=== PATIENT | female | born 1945 | race Caucasian/White ===

== ENCOUNTER 2016-05-21 19:56 | Emergency (ER) | payer OTHER ==
[2016-05-21 20:16] VITALS: BP 127/88
[2016-05-21] MEDS ORDERED: Acetaminophen TAB* 325 MG PO ONE (20:31)
--- NOTE | 2016-05-21 20:54 | UC ---
Meryl Willis Erika, scribed for Bonnie Albert MD on 05/21/16 at 2024 . Head Injury HPI - HPI Summary HPI Summary: Patient is a 70-year-old female presenting to [facility] with a CC of right-sided facial swelling s/p mechanical fall. Pt reports that she slipped and fell onto her face STEAM HAND. She has swelling and a laceration to the area. Pt reports pain has been worsening since the accident. Pt denies dental pain and states her teeth feel aligned. Denies LOC. Pt also complains of right-sided rib pain. FHx arteritis. Pt does not take blood thinners. - History Of Current Complaint Chief Complaint: UCGeneralIllness Stated Complaint: LACERATION ON FACE,FELL Time Seen by Provider: 05/21/16 20:18 Hx Obtained From: Patient, Family/Luggage Liner - Onset/Duration: Sudden Onset, Lasting Hours, Still Present Severity Currently: Moderate Pain Intensity: 4 Pain Scale Used: 0-10 Numeric Character: Dull Aggravating Factor(s): Nothing Alleviating Factor(s): Other - ice Associated Signs And Symptoms: Positive: Other - swelling and laceration to the face. Negative: LOC (Time In Secs./Mins/Hrs) - Allergies/Home Medications Allergies/Adverse Reactions: Allergies Allergy/AdvReac Type Severity Reaction Status Date / Time Penicillins Allergy Unknown Verified 05/21/16 20:06 Reaction Details Home Medications: Home Medications Thyroid [[place] Thyroid] 1 tab PO DAILY 05/21/16 [History Confirmed 05/21/16] PMH/Surg Hx/FS Hx/Imm Hx Endocrine History Of: Denies: Diabetes Cancer History Of: Reports: Breast Cancer - Surgical History Surgical History: Yes Surgery Procedure, Year, and Place: LUMPECTOMY-LEFT SIDE - Family History Known Family History: Positive: Other - osteoporosis - Social History Lives: With Family Alcohol Use: Rare Substance Use Type: None Smoking Status (MU): Never Smoked Tobacco Review of Systems Skin: Other - painful facial swelling, laceration Eyes: Other - swelling right orbit Cardiovascular: Other - right rib pain Gastrointestinal: Negative Neurovascular: Negative Musculoskeletal: Arthralgia - right rib pain Neurological: Negative Psychological: Negative All Other Systems Reviewed And Are Negative: Yes Physical Exam Triage Information Reviewed: Yes Appearance: Well-Appearing, Well-Nourished, Pain Distress Vital Signs: Initial Vital Signs Temp 99.2 F 05/21/16 20:07 Pulse 87 05/21/16 20:07 Resp 18 05/21/16 20:07 BP 127/88 05/21/16 20:07 Pulse Ox 96 05/21/16 20:07 Vital Signs Reviewed: Yes Eyes: Positive: Conjunctiva Clear ENT Exam: Other - Periorbital hematoma to the right cheek with no step offs, no hyphema. EOMI PERRL Dental Exam: Normal - intact, aligned as ever Dental: Negative: Dental Fracture @ Neck: Positive: Supple, Nontender Respiratory: Positive: Lungs clear, Normal breath sounds, No respiratory distress, No accessory muscle use Cardiovascular: Positive: RRR, No Murmur, Pulses Normal, Brisk Capillary Refill Musculoskeletal: Positive: Strength Intact, ROM Intact, Other: - right 4th and 5th anterior rib tenderness with no crepitus and no bruising Neurological: Positive: Alert, Muscle Tone Normal Psychological Exam: Normal Skin Exam: Other - superficial laceration right upper eyebrow, swelling, ecchymosis right orbit Head Injury Course/Dx - Differential Dx/Diagnosis Differential Diagnosis/HQI/PQRI: Concussion Without LOC, Intracranial Bleed, Orbital Fracture, Skull Fracture, Zygomatic Fracture, Other - rib fracture Provider Diagnoses: 1. Mechanical fall. 2. Orbital hematoma. 3. Rib pain s/p mechanical fall - Physician Notification/Consults Discussed Patient Care With: [place]. Phipps ([facility] at 20:29 - pt will go by private car to the ED Instructed by Provider To: MD Will See In ED Discharge - Discharge Plan Condition: Stable Disposition: AGAINST MEDICAL ADVICE Referrals: Melissa Monae MD [Primary Care Provider] - The documentation as recorded by the Meryl bowles Erika accurately reflects the service I personally performed and the decisions made by , Bonnie Albert MD.
== END 2016-05-21 21:00 | disposition left against medical advice (07) ==
LOC: UCEAST 19:56
DX: S05.11XA Contusion of eyeball and orbital tissues, right eye, initial encounter (principal); S01.111A Laceration without foreign body of right eyelid and periocular area, initial encounter; W01.0XXA Fall on same level from slipping, tripping and stumbling without subsequent striking against object, initial encounter; Y93.9 Activity, unspecified; Y92.9 Unspecified place or not applicable; Z88.0 Allergy status to penicillin
CPT/HCPCS: 99212; A9270-GY; G0463

== ENCOUNTER 2016-05-21 21:08 | Emergency (ER) | payer OTHER ==
--- NOTE | 2016-05-21 22:28 | ED ---
Jordan Willis Michael, scribed for Mere Phipps MD on 05/21/16 at 2152 . Adult Trauma - HPI Summary HPI Summary: 70 y/o female was referred to ED from [facility] to the ED after a mechanical fall while she was running on an uneven sidewalk at 1900 this evening. The pt recalls hitting her head with her glasses on. She c/o right orbital pain with ecchymosis. Pt denies LOC. Denies neck and back pain. No blood HEENT. No vision changes. Pt was given APAP at [facility]. The pt also is positive for RUBI, back pain, right rib pain, and bilat knee pain. She denies LOC, dental pain, hematuria, nausea, epistaxis, and bleeding from the ears. Pt unslure of last Tdap. No anticoagulants - History of Current Complaint Chief Complaint: EDTraumaMultiple Stated Complaint: TRANSFER/FALL- Time Seen by Provider: 05/21/16 21:23 Hx Obtained From: Patient, EMS, Medical Records Mechanism of Injury: Blunt Trauma, Fall Loss of Consciousness: no loss of consciousness Onset/Duration: Started Hours Ago, Still Present Onset of Pain: Immediate Onset Severity: Moderate Current Severity: Moderate Pain Intensity: 7 Pain Scale Used: 0-10 Numeric Location: Head, Chest, Back, Abdomen/Pelvis, Extremities - RUE Associated Signs & Symptoms: Positive: Negative - denies LOC, dental pain, hematuria, nausea, epistaxis, and bleeding from the ears, Chest Pain, Abdominal Pain, Ecchymosis - right orbital, Other: - RUE pain. back pain. bilat knee pain. RUBI. - Allergy/Home Medications Allergies/Adverse Reactions: Allergies Allergy/AdvReac Type Severity Reaction Status Date / Time Penicillins Allergy Unknown Verified 05/21/16 20:06 Reaction Details PMH/Surg Hx/FS Hx/Imm Hx Previously Healthy: Yes Endocrine/Hematology History: Denies: Hx Anticoagulant Therapy, Hx Diabetes Musculoskeletal History: Reports: Hx Osteoporosis Denies: Hx Rheumatoid Arthritis - OA - Cancer History Cancer Type, Location and Year: BREAST-2009 - Surgical History Surgery Procedure, Year, and Place: LUMPECTOMY-LEFT SIDE Infectious Disease History: No Infectious Disease History: Denies: Traveled Outside the [place] in Last 30 Days - Family History Known Family History: Positive: Other - osteoporosis - Social History Occupation: Employed Full-time Lives: With Family Alcohol Use: Rare Substance Use Type: Reports: None Smoking Status (MU): Never Smoked Tobacco Review of Systems Negative: Fever Positive: Other - right orbital pain w/ ecchymosis Negative: Epistaxis, Dental Pain Positive: Chest Pain Positive: Abdominal Pain. Negative: Nausea Positive: Other - back pain. bilat knee pain. RUE pain. Positive: Bruising Positive: Headache. Negative: Syncope Psychological: Normal All Other Systems Reviewed And Are Negative: Yes Physical Exam Triage Information Reviewed: Yes Vital Signs On Initial Exam: Initial Vitals Temp Pulse Resp BP Pulse Ox 98.8 F 88 16 142/83 100 05/21/16 21:10 05/21/16 21:10 05/21/16 21:10 05/21/16 21:10 05/21/16 21:10 Vital Signs Reviewed: Yes Appearance: Positive: Well-Appearing, No Pain Distress Skin: Positive: Warm, Skin Color Reflects Adequate Perfusion, Dry, Other - right orbital ring, lateral aspect with ecchymosis. b/l knees, small- non- suturable abrasions Head/Face: Positive: Normal Head/Face Inspection Eyes: Positive: Normal, EOMI, RACQUEL, Conjunctiva Clear, Other: - no hymphema, injection, subconjunctival hematoma No crepitus of orbit + Tenderness right lateral orbit with direct palp. Negative: Conjunctiva Inflammed, Discharge ENT: Positive: Normal ENT inspection, Pharynx normal, TMs normal. Negative: Nasal congestion, Nasal drainage Neck: Positive: Supple, Nontender, No Lymphadenopathy Respiratory/Lung Sounds: Positive: Clear to Auscultation, Breath Sounds Present , Decreased Breath Sounds, Other - mild discomfort right mid, distal ribs. no crepitus. no ecchymosis. + BS throughout No retractions. Negative: Wheezes Cardiovascular: Positive: Normal, RRR. Negative: Murmur Abdomen Description: Positive: Nontender, No Organomegaly, Soft Bowel Sounds: Positive: Present Musculoskeletal: Positive: Normal, Strength/ROM Intact, Other - No spinous process pain c/t/l/s Full AROM ext x 4 Neurological: Positive: Normal, Sensory/Motor Intact, Alert, Oriented to Person Place, Time. Negative: Slurred Speech, Ataxic Gait Psychiatric: Positive: Normal AVPU Assessment: Alert - Mary Jane Coma Scale Best Eye Response: 4 - Spontaneous Best Motor Response: 6 - Obeys Commands Best Verbal Response: 5 - Oriented Diagnostics - Vital Signs Vital Signs Temp Pulse Resp BP Pulse Ox 05/21/16 21:10 98.8 F 88 16 142/83 100 - Laboratory Lab Statement: Any lab studies that have been ordered have been reviewed, and results considered in the medical decision making process. - CT Brain CT CT Interpretation: No Acute Changes CT Interpretation Completed By: Radiologist Orbital CT CT Interpretation: Positive (See Comments) - RIGHT MAXILLA SOFT TISSUE SWELLING WITH SMALL HEMATOMA. NO FACIAL BONE FRACTURE. CT Interpretation Completed By: Radiologist Re-Evaluation - Re-Evaluation First Eval Comment: Reviewed imaging with pt. Pt declined tdap - will check with PCP. motrin/apap. rest. stretch. deep, slow breaths. f/u with pcp. return prn Adult Trauma Course/Dx - Course Assessment/Plan: Pt presents s/p mechanical fall. Pt with ecchymosis right lateral orbit and abraisons to knee. Pt with discomfort right lateral, distal ribs - no crepitus. Pt very concerned about imaging and refusing cxr, rib films , knee films. Pt agrees to head and orbit CT. Pt aware may miss rib fx or other injuries. ice. pt give APAP. Pt will consider tdap. reassess - Diagnoses Differential Diagnosis/HQI/PQRI: Positive: Abrasion(s), Contusion(s), Fracture Provider Diagnoses: Facial contusion, Abrasion Discharge - Discharge Plan Condition: Stable Disposition: HOME Patient Education Materials: Abrasion (ED), Facial Contusion (ED) Referrals: Melissa Monae MD [Primary Care Provider] - Additional Instructions: - stay well hydrated Drink plenty of non-alcoholic, non-caffinated beverages - anticipate increased pain over the next 1-2 days. this is normal. Slow, gentle stretching exercises are important - Okay to alternate ibuprofen (advil, motrin) and tylenol every 3 hours for pain. Take with food. Do NOT take for more than 4-5 days. - Follow-up with your doctor regarding your tetanus - apply ice, 20 minutes at a time, to the areas of injury - Contact your doctor or return with questions or concerns The documentation as recorded by the Jordan bowles Michael accurately reflects the service I personally performed and the decisions made by Moise barton Laura, MD.
--- NOTE | 2016-05-21 22:52 | RAD ---
INDICATION: Right facial injury COMPARISON: None TECHNIQUE: Noncontrast axial source images were acquired from the skull base to the vertex. FINDINGS: Ventricles/sulci: The ventricles and cisterns are normal in size and configuration for age. Brain parenchyma: There is no significant focal parenchymal finding, evidence of intracranial mass, or intracranial mass effect. There is probably a small left basal ganglia calcification There is calcification of pineal gland. Intracranial hemorrhage:None. Extra-axial spaces: There are no abnormal extra axial fluid collections or evidence of extra-axial mass. Calvarium: There is no calvarial fracture or other calvarial abnormality. Scalp: There is no evidence of scalp or extracalvarial soft tissue abnormality. Paranasal sinuses/mastoid: The paranasal sinuses and mastoid air cells are clear. Other: None. IMPRESSION: NO ACUTE INTRACRANIAL FINDINGS.
--- NOTE | 2016-05-21 22:54 | RAD ---
INDICATION: Right facial injury after fall COMPARISON: None TECHNIQUE: Axial source images were acquired through the orbits. Coronal and sagittal reconstructed images were acquired. FINDINGS: Bones: There is no acute facial bone fracture. Orbits: The globes and intraconal structures appear intact. The optic nerves are symmetric. Extraocular muscles appear normal. There is no intraconal inflammatory change or retrobulbar mass.. Paranasal sinuses: The paranasal sinuses are clear. Brain: There are no acute abnormalities of the visualized brain parenchyma. Soft tissues: There is soft tissue swelling with septation edema over the right maxilla and there is a small rounded radiodensity consistent with a small hematoma measuring 1.4 cm Other: None The visualized soft tissue elements about the neck appear normal. IMPRESSION: RIGHT MAXILLA SOFT TISSUE SWELLING WITH SMALL HEMATOMA. NO FACIAL BONE FRACTURE.
[2016-05-21 23:27] VITALS: BP 154/76
== END 2016-05-21 23:27 | disposition home or self-care (01) ==
LOC: ED 21:08
DX: S00.83XA Contusion of other part of head, initial encounter (principal); S00.81XA Abrasion of other part of head, initial encounter; R07.9 Chest pain, unspecified; R10.9 Unspecified abdominal pain; M54.9 Dorsalgia, unspecified; R51 Headache; W19.XXXA Unspecified fall, initial encounter; Y93.9 Activity, unspecified; Y92.9 Unspecified place or not applicable; Y99.9 Unspecified external cause status
CPT/HCPCS: 70450; 70480; 99212; 99282; A9270-GY; G0463

== ENCOUNTER 2016-12-28 09:07 | Day surgery (SDC) | payer OTHER ==
[~2016-12-28 09:07] MED LIST: Buffered Lidocaine 0.9% SYRIN* 5 ML/SYR SYRINGE INTRADERM ONE; Dexamethasone IV* 4 MG/ML 1 ML (4 MG) IV SLOW PU ONE; Famotidine IV* 10 MG/ML 2 ML (20 mg) IV ONE
[2016-12-28] MEDS ORDERED: Dexamethasone IV* 4 MG/ML 1 ML (4 MG) ONE (09:28)
[2016-12-28] MEDS ORDERED: Buffered Lidocaine 0.9% SYRIN* 5 ML/SYR SYRINGE ONE (09:28)
[2016-12-28] MEDS ORDERED: Famotidine IV* 10 MG/ML 2 ML (20 mg) ONE (09:28)
[2016-12-28] MEDS ORDERED: Midazolam* 1 MG/ML 5 ML VIAL (5 MG) ONE (09:29)
[2016-12-28] MEDS ORDERED: Chloroprocaine 2%* 20 ML VIAL ONE (10:26)
[2016-12-28] MEDS ORDERED: DiMENhydriNATE IV* 50 MG/ML VIAL IV PUSH PRN (10:31)
[2016-12-28] MEDS ORDERED: fentaNYL* 50 MCG/ML 2 ML VIAL (100 MCG VIAL) IV PRN (10:31)
[2016-12-28] MEDS ORDERED: oxyCODONE/Acetamin 5/325 MG* TAB PO PRN (10:31)
[2016-12-28] MEDS ORDERED: Ondansetron INJ* 2 MG/ML VIAL IV PRN (10:31)
[2016-12-28] MEDS ORDERED: Ibuprofen TAB* 400 MG ONE ×2 (11:43→11:47)
[2016-12-28 12:42] VITALS: BP 126/68
--- NOTE | 2017-01-04 02:45 | OP ---
DATE OF SURGERY: 12/28/16 [facility] DATE OF : 45 SURGEON: Scott Avalos MD. ANESTHESIOLOGIST: Cr Burton MD ANESTHESIA: Spinal. PRE-OP DIAGNOSIS: Postmenopausal bleeding. POST-OP DIAGNOSIS: Postmenopausal bleeding, pending pathology. OPERATIVE PROCEDURE: Hysteroscopy and D and C. ESTIMATED BLOOD LOSS: None. SPECIMENS SENT TO PATHOLOGY: Endometrial curettings. IV FLUIDS: She received 1300 cc of IV crystalloid fluid. URINE OUTPUT: 400 cc of clear urine. FINDINGS: The uterus sounded to 6 cm and was in anteverted position. Hysteroscopically, she had a denuded atrophic endometrium and there were no obvious lesions noted. DESCRIPTION OF PROCEDURE: The patient was taken to the operating room where she was identified. She was placed on the operating table where a spinal anesthetic was obtained without difficulty. She was then placed in the dorsal lithotomy position, prepped and draped in the normal sterile fashion. Attention was then brought on to the patient's perineum where the bladder was catheterized and clear of urine. A weighted speculum was then inserted into the patient's vagina. The cervix was identified, grasped with a single-tooth tenaculum and the uterus was then sounded to 6 cm and noted to be in an anteverted position. The cervical os was then further dilated with Hegar dilators and through the cervix, I was able to introduce a 30-degree, 10 mm hysteroscope. The survey of the patient's endometrial cavity hysteroscopically revealed findings as noted above. After the hysteroscopy, I proceeded to perform a sharp curettage of the patient's uterine cavity. The endometrial curettings, which were scant, were sent to pathology. A second look with the hysteroscope revealed complete denudation of the endometrial cavity. At this point, all the instruments were removed from the patient's vagina. Sponge, lap, needle counts were correct x2. She was then transferred to recovery room area in stable condition. [id number]/[id number] #: [id number] [facility] HOSPITALManuelito
== END 2016-12-28 12:50 | disposition home or self-care (01) ==
LOC: OR 09:07
PROVIDERS: ATTEND Obstetrics & Gynecology
DX: N95.0 Postmenopausal bleeding (principal); E03.9 Hypothyroidism, unspecified; M19.90 Unspecified osteoarthritis, unspecified site; Z85.3 Personal history of malignant neoplasm of breast; G43.909 Migraine, unspecified, not intractable, without status migrainosus
CPT/HCPCS: 62323; 88305; A9270-GY; J1100; J2250; J2400

== ENCOUNTER 2017-09-20 18:29 | Emergency (ER) | payer OTHER ==
[2017-09-20 18:53] VITALS: BP 119/67
[2017-09-20] MEDS ORDERED: HYDROcodone/ACETAMIN 5-325 MG* 1 TAB PO ONE (19:25)
--- NOTE | 2017-09-20 19:37 | RAD ---
INDICATION: Left shoulder pain COMPARISON: None TECHNIQUE: Routine frontal, Y and axial views were obtained. FINDINGS: There is a fracture of the head and surgical neck of the humerus. The fractures essentially nondisplaced. No other fractures are evident. There is no dislocation. There clips in left axillary region. IMPRESSION: FRACTURES OF THE HUMERAL HEAD AND NECK.
--- NOTE | 2017-09-20 19:57 | UC ---
Katarina Willis Julia, scribed for Tyrese Montoya MD on 09/20/17 at 1920 . Upper Extremity HPI - HPI Summary HPI Summary: This patient is a 72 year old F [place] [facility] [place] a chief complaint of left shoulder pain after tripping over a box earlier today. Patient believes she may have broken her left arm or shoulder. Pain is a 6/10 to a 7/10 in severity. Patient states she is unable to move arm secondary to pain. She c/o left hand numbness. - History of Current Complaint Chief Complaint: UCUpperExtremity Stated Complaint: SHOULDER INJURY Time Seen by Provider: 09/20/17 18:58 Hx Obtained From: Patient Hx Last Menstrual Period: post Onset/Duration: Sudden Onset, Lasting Hours Pain Intensity: 7 Pain Scale Used: 0-10 Numeric Location Of Pain: Is Discrete @ - left shoulder/arm Aggravating Factor(s): Movement Associated Signs And Symptoms: Positive: Numbness/Tingling - left hand - Allergies/Home Medications Allergies/Adverse Reactions: Allergies Allergy/AdvReac Type Severity Reaction Status Date / Time Penicillins Allergy from Verified 09/20/17 18:54 allergy testing PMH/Surg Hx/FS Hx/Imm Hx Previously Healthy: Yes Endocrine History: Thyroid Disease - well controlled Other History Of: Negative For: Anticoagulant Therapy - Surgical History Surgical History: Yes Surgery Procedure, Year, and Place: LUMPECTOMY-LEFT SIDE 2008 [facility] [place] - Family History Known Family History: Positive: Other - osteoporosis - Social History Alcohol Use: Rare Substance Use Type: None Smoking Status (MU): Never Smoked Tobacco Review of Systems Constitutional: Negative Musculoskeletal: Myalgia - L shoulder/arm pain Neurological: Numbness - Left hand All Other Systems Reviewed And Are Negative: Yes Physical Exam - Summary Physical Exam Summary: VITAL SIGNS: Reviewed. GENERAL: Patient is a well-developed and nourished female who is lying in the stretcher. Patient is not in any acute respiratory distress. HEAD AND FACE: Normocephalic EYES: PERRLA, EOMI x 2. EARS: Hearing grossly intact. MOUTH: Oropharynx within normal limits. NECK: Supple, trachea is midline, no adenopathy, no JVD, no carotid bruit. CHEST: Symmetric, no tenderness at palpation LUNGS: Clear to auscultation bilaterally. No wheezing or crackles. CVS: Regular rate and rhythm, S1 and S2 present, no murmurs or gallops appreciated. ABDOMEN: Soft, non-tender. Bowel sounds are normal. No abdominal abnormal pulsations. EXTREMITIES: no edema, no cyanosis or clubbing. Decreased ROM in L shoulder. Left extremity is neurovascularly intact NEURO: Alert and oriented x 3. No acute neurological deficits. Speech is normal and follows commands. SKIN: Dry and warm Triage Information Reviewed: Yes Vital Signs: Initial Vital Signs Temp 98 F 09/20/17 18:43 Pulse 73 09/20/17 18:43 Resp 15 09/20/17 18:43 BP 119/67 09/20/17 18:43 Pulse Ox 99 09/20/17 18:43 Vital Signs Reviewed: Yes Diagnostics - Radiology L Shoulder XR Radiology Interpretation Completed By: Radiologist - FRACTURES OF THE HUMERAL HEAD AND NECK. Dr. Montoya has reviewed this report. Upper Extremity Course/Dx - Course Course Of Treatment: X-ray of the left shoulder shows that the patient has a left humeral neck and head fracture. The patient was placed in a shoulder immobilizer given Linkwood for pain. At this point the patient will be discharged home with follow-up with Dr. Barr orthopedic doctor who was rn transitional for today. Patient was instructed to go to the ER. The patient's symptoms and pain worsens. She understands and agrees. Patient's questions were addressed and she has no further concerns. Patient is hemodynamically stable alert and oriented 3 - Differential Dx/Diagnosis Provider Diagnoses: humerus fracture Discharge - Sign-Out/Discharge Documenting (check all that apply): Discharge/Admit/Transfer - Discharge Plan Condition: Stable Disposition: HOME Prescriptions: HYDROcodone/ACETAMIN 5-325 MG* [Link[place] 5-325 TAB*] 1 tab PO Q4H PRN #12 tab MDD 4 tabs PRN Reason: Pain Patient Education Materials: Arm Fracture in Adults (ED) Referrals: Melissa Monae MD [Primary Care Provider] - Adriana Barr MD [Medical Doctor] - As Soon As Possible (Follow up with orthopedics for your humerus fracture.) Additional Instructions: Take medications as instructed Increase your fluid intake Return to the if symptoms worsen - Billing Disposition and Condition Condition: STABLE Disposition: HOME The documentation as recorded by the Katarina bowles Julia accurately reflects the service I personally performed and the decisions made by me, Tyrese Montoya MD.
== END 2017-09-20 19:50 | disposition home or self-care (01) ==
LOC: UCEAST 18:29
DX: S42.302A Unspecified fracture of shaft of humerus, left arm, initial encounter for closed fracture (principal); S42.215A Unspecified nondisplaced fracture of surgical neck of left humerus, initial encounter for closed fracture; W01.0XXA Fall on same level from slipping, tripping and stumbling without subsequent striking against object, initial encounter; Y93.9 Activity, unspecified; Y92.9 Unspecified place or not applicable; R20.0 Anesthesia of skin; E07.9 Disorder of thyroid, unspecified; Z88.0 Allergy status to penicillin
CPT/HCPCS: 99212; G0463